=== PATIENT | female | born 1950 | race Caucasian/White ===

== ENCOUNTER → 2023-07-19 | Outpatient (CLI) | payer MEDICARE ==
--- NOTE | 2023-07-19 14:20 | BD ---
EXAMINATION TYPE: Axial Bone Density DATE OF EXAM: 07/19/2023 CLINICAL HISTORY: 72 years old Female. ICD-10 CODE: [id number] OSTEO OF R HIP Height: 60.25 Weight: 145 FRAX RISK QUESTIONS: History of Fracture in Adulthood: yes, L4 T12 fx Secondary Osteoporosis: no RISK FACTORS HISTORY OF: Spine Fracture: yes L4 /T12 When: Surgery to Hip(right/left)Wrist (right/left): yes, both When: 2015 Family History of Osteoporosis: yes, grandma mat Active: yes Diet low in dairy products/other sources of calcium: no Postmenopausal woman: yes Lost more than 2 inches in height since high school: no MEDICATIONS: Additional Medications: no EXAM MEASUREMENTS: Bone mineral densitometry was performed using the eCardio System. Bone mineral density about the R Wrist (g/cm2): 0.585 T Score values are as follows: -----Dist. R+U: -1.3 -----Prox. R+U: -1.3 -----Radius total: -1.5 Z Score values are as follows: -----Dist. R+U: 0.6 -----Prox. R+U: 0.6 -----Radius total: 0.4 Bone mineral density baseline Bone mineral density about the L Wrist (g/cm2): 0.537 T Score values are as follows: -----Dist. R+U: -2.2 -----Prox. R+U: -1.9 -----Radius total: -2.3 Z Score values are as follows: -----Dist. R+U: -0.3 -----Prox. R+U: 0.0 -----Radius total: -0.4 Bone mineral density baseline FRAX%s: no hips done IMPRESSION: Osteopenia (T Score between -2.5 and -1). There is slightly increased risk of fracture and the patient may be considered for treatment. Re-Screen 2-5 years. NOTE: T-SCORE=SD OF THE YOUNG ADULT MEAN.
--- NOTE | 2023-07-19 15:39 | US ---
EXAMINATION TYPE: US carotid duplex BILAT DATE OF EXAM: 07/19/2023 COMPARISON: NONE CLINICAL INDICATION: Female, 72 years old with history of [id number] CAROTID STENOSIS; family history for carotid disease, TIA 2005, no symptoms today TECHNIQUE: Carotid duplex ultrasound examination. Indirect Doppler criteria was utilized. FINDINGS: EXAM MEASUREMENTS: RIGHT: Peak Systolic Velocity (PSV) cm/sec ----- Right CCA: 66.4 ----- Right ICA: 101.8 ----- Right ECA: 59.5 ICA/CCA ratio: 1.5 RIGHT: End Diastole cm/sec ----- Right CCA: 13.0 ----- Right ICA: 27.6 ----- Right ECA: 9.7 LEFT: Peak Systolic Velocity (PSV) cm/sec ----- Left CCA: 57.9 ----- Left ICA: 84.9 ----- Left ECA: 92.7 ICA/CCA ratio: 1.5 LEFT: End Diastole cm/sec ----- Left CCA: 15.9 ----- Left ICA: 28.2 ----- Left ECA: 11.1 VERTEBRALS (direction of flow): Right Vertebral: Antegrade Left Vertebral: Antegrade Rhythm: Normal AUTO TIRE RECAPPER NOTES: Mild homogeneous plaque with no stenosis seen IMPRESSION: No hemodynamically significant internal carotid artery stenosis on either side. Criteria for Assigning % of Stenosis / Diameter reduction (Estimation based on the indirect measurements of the internal carotid artery velocities (ICA PSV). 1. Normal (no stenosis)=ICA PSV < 125 cm/s: ratio < 2.0: ICA EDV<40 cm/s. 2. Less than 50% stenosis=ICA PSV < 125 cm/s: ratio < 2.0: ICA EDV<40 cm/s. 3. 50 to 69% stenosis=ICA PSV of 125 to 230 cm/s: ration 2.0 ? 4.0: ICA EDV 40-100 cm/s. 4. Greater than 70% stenosis to near occlusion= ICA PSV > 230 cm/s: ratio > 4.0: ICA EDV > 100 cm/s. 5. Near occlusion= ICA PSV velocities may be low or undetectable: variable ratio and ICA EDV. 6. Total occlusion=unable to detect flow.
--- NOTE | 2023-07-19 18:39 | CA ---
Transthoracic Echo Report Name: Saniya Vela Age: 72 Gender: F : 1950 Exam Date: 07/19/2023 14:28 Exam Location: [facility] Ht (in): 60 Wt (lb): 135 Ordering Physician: Mor See MD Attending/Referring Phys: Zoo Caretaker Karen Calle [facility] Procedure CPT: Indications: I65.23 carotid stenosis, M85.851 osteopenia, G45.9 Cardiac Hx: Technical Quality: Fair Contrast 1: Total Dose (mL): Contrast 2: Total Dose (mL): MEASUREMENTS (Male / Female) Normal Values 2D ECHO LV Diastolic Diameter PLAX 4.4 cm 4.2 - 5.9 / 3.9 - 5.3 cm LV Systolic Diameter PLAX 3.2 cm IVS Diastolic Thickness 0.7 cm 0.6 - 1.0 / 0.6 - 0.9 cm LVPW Diastolic Thickness 1.0 cm 0.6 - 1.0 / 0.6 - 0.9 cm LV Relative Wall Thickness 0.4 Ascending Aorta Diameter 3.4 cm M-MODE Aortic Root Diameter MM 2.2 cm LA Systolic Diameter MM 3.1 cm LA Ao Ratio MM 1.4 AV Cusp Separation MM 2.0 cm DOPPLER AV Peak Velocity 145.5 cm/s AV Peak Gradient 8.5 mmHg AV Mean Velocity 109.4 cm/s AV Mean Gradient 5.2 mmHg AV Velocity Time Integral 34.3 cm AI Peak Velocity 452.4 cm/s AI Peak Gradient 81.9 mmHg AI Pressure Half Time 530.7 ms LVOT Peak Velocity 130.5 cm/s LVOT Peak Gradient 6.8 mmHg LVOT Velocity Time Integral 31.9 cm Mitral E Point Velocity 65.5 cm/s Mitral A Point Velocity 80.9 cm/s Mitral E to A Ratio 0.8 MV Deceleration Time 177.0 ms LV E' Lateral Velocity 10.4 cm/s Mitral E to LV E' Lateral Ratio 6.3 LV E' Septal Velocity 8.6 cm/s Mitral E to LV E' Septal Ratio 7.6 TR Peak Velocity 238.6 cm/s TR Peak Gradient 22.8 mmHg Right Atrial Pressure 3.0 mmHg Pulmonary Artery Systolic Pressu 25.8 mmHg Right Ventricular Systolic Press 25.8 mmHg FINDINGS Left Ventricle Left ventricular wall thickness normal. Left ventricular cavity size normal. Normal left ventricular systolic function with no obvious regional wall motion abnormalities. Left ventricular ejection fraction is estimated at 55-60%. Right Ventricle Normal right ventricular size. Right Atrium Normal right atrial size. Left Atrium Normal left atrial size. Mitral Valve Mitral valve thickened. Mild mitral regurgitation. Aortic Valve Aortic valve not well visualized. Mild to moderate aortic regurgitation. Tricuspid Valve Structurally normal tricuspid valve. Mild tricuspid regurgitation. Pulmonic Valve Pulmonic valve not well visualized. Pericardium Minimal pericardial effusion (normal variant). Aorta Normal size aortic root and proximal ascending aorta. CONCLUSIONS 1. Normal left ventricular size and systolic function 2. Mild to moderate aortic regurgitation, the valve was not well-visualized. 3. Mild mitral and tricuspid regurgitation. Previewed by: Dr. Nani Middleton MD (Electronically Signed) Final Date: 19 July 2023 18:38
== END | disposition home or self-care (01) ==
LOC: RADECHMAIN 13:15
PROVIDERS: ATTEND Internal Medicine
DX: I65.23 Occlusion and stenosis of bilateral carotid arteries (principal); M85.89 Other specified disorders of bone density and structure, multiple sites; Z78.0 Asymptomatic menopausal state
CPT/HCPCS: 77080; 93306; 93880

== ENCOUNTER → 2024-12-13 | Outpatient (CLI) | payer MEDICARE ==
--- NOTE | 2024-12-13 15:40 | USB ---
Reason for Exam: Clinical finding. Risk Values: Kylie 5 year model risk: 1.2%. NCI Lifetime model risk: 3.0%. Technique: Method: Whole Breast Handheld. Findings: The whole breast of both breasts, the axilla of both breasts and the retroareolar of both breasts were scanned. A complete US of all four quadrants of the breast and retro-areolar region were reviewed. No solid or cystic masses are identified.. Bilateral implants are intact. Screening mammography is recommended however the patient currently refuses mammography. Overall Assessment: Negative, BI-RAD 1 Management: Screening Mammogram of both breasts in 1 day. A clinical breast exam by your physician is recommended on an annual basis and results should be correlated with mammographic findings. This exam should not preclude additional follow-up of suspicious palpable abnormalities. Results were given to the patient verbally at the time of exam. [facility], , 12/13/2024 3:36 PM. Electronically signed and approved by: Jose M Matthews M.D. Radiologis
== END | disposition home or self-care (01) ==
LOC: RADUSWWP 14:52
PROVIDERS: ATTEND Family Medicine
DX: Z98.82 Breast implant status (principal)